=== PATIENT | male | born 1975 | race Caucasian/White ===

== ENCOUNTER 2018-08-30 09:18 | Emergency (ER) | payer SELFPAY ==
[~2018-08-30] VITALS: Ht 170.2 cm; Wt 66.2 kg
[2018-08-30 09:22] VITALS: BP 134/76; PULSE 84; RESP 17; Ht 170.2 cm; Wt 66.2 kg
[2018-08-30] MEDS ORDERED: IBUPROFEN 800 MG TAB PO ONE (10:00)
[2018-08-30] MEDS ORDERED: NAPR-985 PO (10:51)
[2018-08-30] MEDS ORDERED: HYDR-4011 PO (10:51)
[2018-08-30] MEDS ORDERED: MED4DP PO (10:51)
[2018-08-30] MEDS ORDERED: DICL100G37 TOP (10:51)
--- NOTE | 2018-08-30 13:26 | ERD ---
ER Documentation Chief Complaint Chief Complaint RIGHT SHOULDER PAIN X2 MONTHS, NO INJURY HPI 42-year-old male presenting with pain to the right hand. Patient has some neck pain that extends down his right upper extremity. He denies any recent falls or traumatic injuries. This is been going on for the last 2 months. He has some mild weakness and is sharp stabbing pains running down his arm. His pain is worse with movement. Has not taken any medications for his pain. Medical history is diabetes [id number]. NKDA. Surgical history back surgery. Social history denies ROS All systems reviewed and are negative except as per history of present illness. Medications Home Meds Active Scripts Diclofenac Sodium* (Voltaren* Gel) 1% -100 Gm Gel, 2 GM TOP QID, #1 TUB Prov:MUMTAZ MERCEDES PA-C 08/30/18 Hydrocodone/Acetaminophen (Frazee 5-325 Tablet) 1 Each Tablet, 1 TAB PO Q6H PRN for PAIN, #7 TAB Prov:MUMTAZ MERCEDES PA-C 08/30/18 Naproxen* (Naprosyn*) 500 Mg Tablet, 500 MG PO BID PRN for PAIN AND/OR INFLAMMATION, #30 TAB Prov:MUMTAZ MERCEDES PA-C 08/30/18 Methylprednisolone* (Medrol* DOSE PACK) 4 Mg/Dose-Pack Tab.ds.pk, 4 MG PO . DIRECTED, #1 PACKET Prov:MUMTAZ MERCEDES PA-C 08/30/18 Allergies Allergies: Coded Allergies: No Known Allergy (Unverified , 08/30/18) PMhx/Soc Medical and Surgical Hx: pt denies Surgical Hx Hx Alcohol Use: Yes (occasional) Hx Substance Use: No Hx Tobacco Use: No Smoking Status: Never smoker FmHx Family History: No diabetes, No coronary disease, No other Physical Exam Vitals Vital Signs Date Temp Pulse Resp B/P (MAP) Pulse Ox O2 O2 Flow FiO2 Time Delivery Rate 08/30/18 98.2 84 17 134/76 98 09:22 (95) Physical Exam GENERAL: The patient is well-appearing, well-nourished, in no acute distress NECK: C-spine is soft and supple. There is no meningismus. There is no cervica l lymphadenopathy. Tender to palpation over paraspinous muscles of the cervical neck. No midline tenderness or bony step-offs felt. CHEST: Clear to auscultation bilaterally. There are no rales, wheezes or rhonchi. HEART: Regular rate and rhythm. No murmurs, clicks, rubs or gallops. EXTREMITIES: Limited range of motion secondary to pain to the right upper extremity. Normal passive range of motion. Compartments soft. No swelling noted. Pulses intact to the right upper extremity. Normal radial and ulnar and median nerve intervention to the right upper extremity. NEUROLOGIC: Alert and oriented. Cranial nerves II through XII intact. Motor strength in all 4 extremities with 5 out of 5 strength. Sensation grossly intact. Normal speech and gait. SKIN: There is no apparent rash or petechiae. The skin is warm and dry. Results 24 hrs Current Medications Medications Dose Sig/Martin Start Time Status Last (Trade) Ordered Route PRN Stop Time Admin Dose Reason Admin Ibuprofen 800 mg ONCE ONCE 08/30/18 DC 08/30/18 (Motrin) PO 10:00 09:48 08/30/18 10:01 Procedures/MDM DIAGNOSTIC IMAGING REPORT Patient: NICOLE COHEN : 1975 Age: 42 Sex: M MR #: [id number] DOS: 08/30/18 0943 Ordering MD: INES MERCEDES PA-C Location: [facility] Room/Bed: PROCEDURE: XR Cervical Spine. CLINICAL INDICATION: Neck pain. TECHNIQUE: Three views of the cervical spine were obtained. COMPARISON: None. FINDINGS: Alignment of the cervical spine is normal. Vertebral body heights are maintained. There is moderate intervertebral disc space narrowing with endplate sclerosis and osteophyte formation at C5-C6. There is mild to moderate intervertebral disc space narrowing at C7-T1. The remaining intervertebral disc spaces are preserved. Mild multilevel uncovertebral joint arthritis is seen in the mid to lower cervical spine. Prevertebral soft tissues are unremarkable. IMPRESSION: 1. Degenerative changes of the cervical spine most prominent at C5-C6. DIAGNOSTIC IMAGING REPORT Patient: NICOLE COHEN : 1975 Age: 42 Sex: M MR #: [id number] DOS: 08/30/18 0943 Ordering MD: INES MERCEDES PA-C Location: [facility] Room/Bed: PROCEDURE: XR right shoulder CLINICAL INDICATION: shoulder pain. TECHNIQUE: Three views of the right shoulder were obtained. COMPARISON: None. FINDINGS: There is no acute fracture or dislocation. Osseous structures are intact. There are moderate degenerative changes at the right acromioclavicular joint. There is no focal soft tissue abnormality. IMPRESSION: 1. Moderate degenerative changes of the right acromioclavicular joint, otherwise, unremarkable right shoulder radiographs. MDM; 2-year-old male presenting with pain to the right shoulder. I have low suspicion for acute fracture dislocation. I have low suspicion for tendon or ligament injury. Patient's pain is likely associated with arthritic changes versus nerve impingement. Patient is discharged with supportive medications. Patient is recommended to follow-up with orthopedics for further evaluation and imaging. Patient is told symptoms change or worsen to return immediately to the ER. I have low suspicion for vascular injury. I have low suspicion for acute fracture dislocation. All questions answered at discharge Departure Diagnosis: Primary Impression: Pain Additional Impression: Arthritis Condition: Stable Patient Instructions: Osteoarthritis, Paraesthesias Referrals: [facility] YOU HAVE RECEIVED A MEDICAL SCREENING EXAM AND THE RESULTS INDICATE THAT YOU DO NOT HAVE A CONDITION THAT REQUIRES URGENT TREATMENT IN THE EMERGENCY DEPARTMENT. FURTHER EVALUATION AND TREATMENT OF YOUR CONDITION CAN WAIT UNTIL YOU ARE SEEN IN YOUR DOCTORS OFFICE WITHIN THE NEXT 1-2 DAYS. IT IS YOUR RESPONSIBILITY TO MAKE AN APPOINTMENT FOR FOLOW-UP CARE. IF YOU HAVE A PRIMARY DOCTOR --you should call your primary doctor and schedule an appointment IF YOU DO NOT HAVE A PRIMARY DOCTOR YOU CAN CALL OUR PHYSICIAN REFERRAL HOTLINE AT IF YOU CAN NOT AFFORD TO SEE A PHYSICIAN YOU CAN CHOSE FROM THE FOLLOWING [facility] [address] [facility]. [facility] [address] [facility]. [facility] [address] [facility]. [facility] [address] [facility]. [facility] [address] [facility]. [facility]. [address] Additional Instructions: FOLLOW UP WITH YOUR PRIMARY CARE PHYSICIAN TOMORROW.Return to this facility if you are not improving as expected. MUMTAZ MERCEDES PA-C Aug 30, 2018 13:26
== END 2018-08-30 10:58 | disposition home or self-care (01) ==
LOC: FTE 09:18
DX: M25.511 Pain in right shoulder (principal); M19.90 Unspecified osteoarthritis, unspecified site
CPT/HCPCS: 72040